=== PATIENT | male | born 1975 | race African-American/Black ===

== ENCOUNTER 2018-03-21 08:33 | Emergency (ER) | payer OTHER ==
[~2018-03-21] VITALS: Ht 180.3 cm; Wt 108.9 kg
[~2018-03-21 08:33] MED LIST: XANAX0.5 M1 PO
--- NOTE | 2018-03-21 09:35 | ED GENERAL ADULT ---
History of Present Illness General Chief Complaint: General Adult Stated Complaint: MULTI COMPLAINTS Source: patient Exam Limitations: no limitations Vital Signs & Intake/Output Vital Signs & Intake/Output Vital Signs Date Time Temp Pulse Resp B/P B/P Pulse O2 O2 Flow FiO2 Mean Ox Delivery Rate 03/21 1026 97.0 80 20 123/67 96 Room Air 03/21 0836 96.8 93 18 175/74 96 Room Air Allergies Coded Allergies: NO KNOWN ALLERGIES (03/26/13) Reconcile Medications Doxycycline Hyclate (Vibramycin) 100 MG CAPSULE 1 CAP PO BID BRONCHITIS Triage Note: 43 Y/O MALE C/O NOT FEELING WELL FOR APPROX 3-4 DAYS. 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 STATES "A FEW TIMES I THINK I INHALED FUMES AND I SMELLED THE PAINT". C/O INTERMITTENT DIZZY SPELLS, INTERMITTENT L SIDED PAIN AND A DRY COUGH. ALSO REPORTS DECREASED APPETITE/PO INTAKE SINCE YESTERDAY. SPEAKING CLEARLY WITH NO RESPIRATORY DISTRESS NOTED, SAT 97% RA. DENIES RECENT SICK CONTACTS; DENIES COWORKERS ILL WITH SIMILIAR SYMPTOMS. Triage Nurses Notes Reviewed? yes Onset: Abrupt Duration: day(s): Timing: recent history HPI: 03/21/18 43-year-old male presented to the emergency department for cough and headache and generalized myalgias. He says he does have a history of posttraumatic stress disorder. He is been working in a new job and said he is been breathing in chemicals and think this is this may be contributing to his symptoms, he denies any shortness of breath or chest pain. He has a nonproductive cough. No fever. Past History Travel History Traveled to [place] past 21 day No Medical History Any Pertinent Medical History? 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 No Review of Systems Review of Systems Constitutional: Denies: fever. EENTM: Reports: no symptoms. Respiratory: Reports: cough. Denies: short of breath. Cardiovascular: Denies: chest pain. GI: Denies: abdominal pain. Genitourinary: Reports: no symptoms. Musculoskeletal: Reports: see HPI. Skin: Denies: rash. Neurological/Psychological: Reports: no symptoms. Hematologic/Endocrine: Reports: no symptoms. Immunologic/Allergic: Reports: no symptoms. Physical Exam Physical Exam General Appearance: well developed/nourished, alert, awake, anxious, mild distress Head: atraumatic, normal appearance Eyes: Bilateral: normal appearance, PERRL, EOMI. Ears, Nose, Throat: normal pharynx, normal ENT inspection Neck: normal inspection, supple, full range of motion Respiratory: normal breath sounds, chest non-tender, no respiratory distress Cardiovascular: regular rate/rhythm Peripheral Pulses: 4+ radial (R), 4+ radial (L) Gastrointestinal: soft, non-tender Back: normal range of motion Extremities: normal inspection, no edema Neurologic/Psych: no motor/sensory deficits, awake, alert, oriented x 3 Skin: intact, normal color, warm/dry Core Measures ACS in differential dx? No CVA/TIA Diagnosis: No Sepsis Present: No Sepsis Focused Exam Completed? No Progress Differential Diagnoses I considered the following diagnoses in my evaluation of the patient: [Pneumonia , chemical pneumonitis, pneumothorax, Lyme disease, viral syndrome] Plan of Care: Orders Procedure Date/time Status LYME TITRE 03/21 0945 Active COMPREHENSIVE METABOLIC PANEL 03/21 0945 Complete CBC WITHOUT DIFFERENTIAL 03/21 0945 Complete Laboratory Tests 03/21/18 0955: Anion Gap 11, Estimated GFR > 60, BUN/Creatinine Ratio 13.8, Glucose 119 H, Calcium 9.4, Total Bilirubin 1.9 H, AST 26, ALT 27, Alkaline Phosphatase 68, Total Protein 7.1, Albumin 3.9, Globulin 3.2, Albumin/Globulin Ratio 1.2, CBC w Diff NO MAN DIFF REQ, RBC 5.16, MCV 82.0, MCH 28.0, MCHC 34.1, RDW 14.2, MPV 9.5 , Gran % 85.2 H, Lymphocytes % 9.5 L, Monocytes % 4.1, Eosinophils % 1.1, Basophils % 0.1, Absolute Granulocytes 9.4 H, Absolute Lymphocytes 1.0 L, Absolute Monocytes 0.4, Absolute Eosinophils 0.1, Absolute Basophils 0, Lyme Disease Antibody Pending Initial ED EKG: none Departure Departure Disposition: HOME OR SELF CARE Condition: Stable Clinical Impression Primary Impression: Polymyalgia Secondary Impressions: Bronchitis Referrals: Patient Has No Primary Care Dr (PCP/Family) Departure Forms: Customer Survey General Discharge Information Prescriptions: Current Visit Scripts Doxycycline Hyclate (Vibramycin) 1 CAP PO BID #[id number] CAP Comments Chest x-ray shows atelectasis. No definite pneumonia. He does admit to a nonproductive cough. He does have mild leukocytosis. He was treated with doxycycline. He will return to the emergency department if worse. He will follow-up with a [facility] faculty practice physician this week. No work for 72 hours. Critical Care Note Critical Care Note Critical Care Time: non-applicable
[2018-03-21 10:00] LABS: ABSOLUTE BASOPHIL COUNT 0 /CUMM (0.0-0.2); ABSOLUTE EOSINOPHIL COUNT 0.1 /CUMM (0.0-0.7); ABSOLUTE GRANULOCYTE CT 9.4 /CUMM (1.4-6.5); ABSOLUTE MONOCYTE COUNT 0.4 /CUMM (0.10-0.60); BASOPHIL % 0.1 % (0.0-2.0); EOSINOPHIL % 1.1 % (0-5); HEMATOCRIT 42.3 % (42-52); MEAN CORPUSCULAR HGB CONC 34.1 G/DL (33.0-37.0); MEAN PLATELET VOLUME 9.5 FL (7.4-10.4); PLATELET COUNT 148 /CUMM (130-400); RBC DISTRIBUTION WIDTH 14.2 % (11.5-14.5); RED BLOOD CELL CT 5.16 /CUMM (4.70-6.10)
--- NOTE | 2018-03-21 10:08 | RADIOLOGY REPORT ---
EXAMINATION: XR CHEST CLINICAL INFORMATION: Cough and headache. Rule out pneumonia. COMPARISON: 03/25/2013 TECHNIQUE: 2 views of the chest were obtained. FINDINGS: The lungs are well expanded. Linear opacity at the left base. There is no focal consolidation, edema, or effusion. No pneumothorax. The cardiomediastinal silhouette is within normal limits. No acute osseous abnormality. IMPRESSION: Linear left basilar opacity suggestive of subsegmental atelectasis. No consolidation.
[2018-03-21 10:23] LABS: GRANULOCYTE % 85.2 % (42.2-75.2)
[2018-03-21 10:26] VITALS: BP 123/67
[2018-03-21] MEDS ORDERED: VIBRAMYCIN100 MG PO (11:08)
== END 2018-03-21 11:24 ==
LOC: ERH 08:33
PROVIDERS: Emergency Medicine
DX: J40 Bronchitis, not specified as acute or chronic (principal); M35.3 Polymyalgia rheumatica; Z87.891 Personal history of nicotine dependence
CPT/HCPCS: 86618; 87798; 71046